=== PATIENT | female | born 1965 | race Caucasian/White ===

== ENCOUNTER 2020-09-18 16:32 | Inpatient (IN) | payer BC ==
[2020-09-18] MEDS ORDERED: SODIUM CHLORIDE 0.9% 1,000 ML IV STA (16:39)
--- NOTE | 2020-09-18 16:45 | ED ---
Abdominal Pain HPI - General Chief Complaint: Abdominal Pain Stated Complaint: ABD pain Time Seen by Provider: 09/18/20 16:39 Source: patient Mode of arrival: wheelchair Limitations: no limitations - History of Present Illness Initial Comments: Swetha is relatively healthy 55-year-old female who presents to the emergency department today for evaluation of lower abdominal pain that began earlier today. Patient describes pain as severe stabbing in the suprapubic area. She also has pain with urination. She's been expressing diarrhea since yesterday she believes this started after eating fruit salad at work event at lunch yesterday. Patient denies any known fevers or chills she's had no nausea or vomiting today but did vomit after eating a fruit salad yesterday. - Related Data Home Medications Medication Instructions Recorded Confirmed Ibuprofen [Motrin Ib] 400 mg PO Q8H PRN 09/18/20 09/18/20 Allergies Allergy/AdvReac Type Severity Reaction Status Date / Time Penicillins Allergy Unknown Verified 09/18/20 20:06 Review of Systems ROS Statement: Those systems with pertinent positive or pertinent negative responses have been documented in the HPI. ROS Other: All systems not noted in ROS Statement are negative. Past Medical History Past Medical History: No Reported History History of Any Multi-Drug Resistant Organisms: None Reported Past Surgical History: No Surgical Hx Reported Past Psychological History: No Psychological Hx Reported Smoking Status: Former smoker Past Alcohol Use History: Occasional Past Drug Use History: None Reported General Exam - General Exam Comments Initial Comments: Physical Exam GENERAL: Patient is well-developed and well-nourished. Appears uncomfortable HENT: Normocephalic, Atraumatic. EYES: PERRL, EOMI PULMONARY: Unlabored respirations. CARDIOVASCULAR: RRR Warm and well perfused extremities ABDOMEN: Tender to palpation of suprapubic and RLQ SKIN: No rashes or bruising : Deferred NEUROLOGIC: Alert and oriented Normal speech Normal gait MUSCULOSKELETAL: Moving all extremities with no apparent injury PSYCHIATRIC: No SI/HI Limitations: no limitations Course Vital Signs 09/18/20 09/18/20 16:35 19:19 Temperature 98.8 F Pulse Rate 110 H 90 Respiratory 18 16 Rate Blood Pressure 129/88 143/91 O2 Sat by Pulse 97 96 Oximetry Medical Decision Making - Medical Decision Making Patient was seen and evaluated history was obtained from patient History and physical exam are concerning for an acute appendicitis Labs were ordered results with leukocytosis, urinalysis is clean Analgesic medication and computed tomography scan were obtained CT scan with evidence of ileitis and inflamed bowel loops in the pelvis, antibiotics were ordered Patient's history and physical exam labs and CAT scan findings were discussed with the surgeon on-call Dr. Huerta who will review the CT imaging recommends admission to medicine with him on consult She care was discussed with physician from [facility] Dr. Barakat who accepts admission Patient was reevaluated and states that she had improvement of her pain after morphine but it is wearing off, she was hoping to go home but is agreeable to admission - Lab Data Result diagrams: 09/18/20 17:28 09/18/20 17:28 Lab Results 09/18/20 09/18/20 09/18/20 Range/Units 17:28 17:28 17:28 WBC 20.5 H (3.8-10.6) k/uL RBC 4.62 (3.80-5.40) m/uL Hgb 15.1 (11.4-16.0) gm/dL Hct 44.5 (34.0-46.0) % MCV 96.3 (80.0-100.0) fL MCH 32.7 (25.0-35.0) pg MCHC 33.9 (31.0-37.0) g/dL RDW 12.9 (11.5-15.5) % Plt Count 286 (150-450) k/uL MPV 7.8 Neutrophils % 86 % Lymphocytes % 8 % Monocytes % 4 % Eosinophils % 1 % Basophils % 0 % Neutrophils # 17.7 H (1.3-7.7) k/uL Lymphocytes # 1.7 (1.0-4.8) k/uL Monocytes # 0.8 (0-1.0) k/uL Eosinophils # 0.1 (0-0.7) k/uL Basophils # 0.0 (0-0.2) k/uL Sodium 134 L (137-145) mmol/L Potassium 3.5 (3.5-5.1) mmol/L Chloride 100 (98-107) mmol/L Carbon Dioxide 23 (22-30) mmol/L Anion Gap 11 mmol/L BUN 12 (7-17) mg/dL Creatinine 0.74 (0.52-1.04) mg/dL Est GFR (CKD-EPI)AfAm >90 (>60 ml/min/1.73 sqM) Est GFR (CKD-EPI)NonAf >90 (>60 ml/min/1.73 sqM) Glucose 147 H (74-99) mg/dL Lactic Ac Sepsis Rflx Plasma Lactic Acid Osei (0.7-2.0) mmol/L Calcium 9.3 (8.4-10.2) mg/dL Magnesium 1.9 (1.6-2.3) mg/dL Total Bilirubin 2.3 H (0.2-1.3) mg/dL AST 20 (14-36) U/L ALT 24 (4-34) U/L Alkaline Phosphatase 98 (38-126) U/L Total Protein 7.3 (6.3-8.2) g/dL Albumin 4.2 (3.5-5.0) g/dL Lipase 29 (23-300) U/L Urine Color [place] Urine Appearance Cloudy H (Clear) Urine pH 6.0 (5.0-8.0) Ur Specific Hustler 1.032 (1.001-1.035) Urine Protein 3+ H (Negative) Urine Glucose (UA) Trace H (Negative) Urine Ketones 1+ H (Negative) Urine Blood Small H (Negative) Urine Nitrite Negative (Negative) Urine Bilirubin 1+ H (Negative) Urine Urobilinogen 12.0 (<2.0) mg/dL Ur Leukocyte Esterase Negative (Negative) Urine RBC 1 (0-5) /hpf Urine WBC 5 (0-5) /hpf Ur Squamous Epith Cells 1 (0-4) /hpf Urine Mucus Many H (None) /hpf 09/18/20 09/18/20 Range/Units 17:28 17:52 WBC (3.8-10.6) k/uL RBC (3.80-5.40) m/uL Hgb (11.4-16.0) gm/dL Hct (34.0-46.0) % MCV (80.0-100.0) fL MCH (25.0-35.0) pg MCHC (31.0-37.0) g/dL RDW (11.5-15.5) % Plt Count (150-450) k/uL MPV Neutrophils % % Lymphocytes % % Monocytes % % Eosinophils % % Basophils % % Neutrophils # (1.3-7.7) k/uL Lymphocytes # (1.0-4.8) k/uL Monocytes # (0-1.0) k/uL Eosinophils # (0-0.7) k/uL Basophils # (0-0.2) k/uL Sodium (137-145) mmol/L Potassium (3.5-5.1) mmol/L Chloride (98-107) mmol/L Carbon Dioxide (22-30) mmol/L Anion Gap mmol/L BUN (7-17) mg/dL Creatinine (0.52-1.04) mg/dL Est GFR (CKD-EPI)AfAm (>60 ml/min/1.73 sqM) Est GFR (CKD-EPI)NonAf (>60 ml/min/1.73 sqM) Glucose (74-99) mg/dL Lactic Ac Sepsis Rflx Y Plasma Lactic Acid Osei 2.2 H* (0.7-2.0) mmol/L Calcium (8.4-10.2) mg/dL Magnesium (1.6-2.3) mg/dL Total Bilirubin (0.2-1.3) mg/dL AST (14-36) U/L ALT (4-34) U/L Alkaline Phosphatase (38-126) U/L Total Protein (6.3-8.2) g/dL Albumin (3.5-5.0) g/dL Lipase (23-300) U/L Urine Color Urine Appearance (Clear) Urine pH (5.0-8.0) Ur Specific Hustler (1.001-1.035) Urine Protein (Negative) Urine Glucose (UA) (Negative) Urine Ketones (Negative) Urine Blood (Negative) Urine Nitrite (Negative) Urine Bilirubin (Negative) Urine Urobilinogen (<2.0) mg/dL Ur Leukocyte Esterase (Negative) Urine RBC (0-5) /hpf Urine WBC (0-5) /hpf Ur Squamous Epith Cells (0-4) /hpf Urine Mucus (None) /hpf Disposition Clinical Impression: Ileitis, Leukocytosis Disposition: ADMITTED IP TO THIS HOSP Condition: Stable
[2020-09-18 17:46] LABS: Appearance,Urine Cloudy (Clear); Bilirubin,Urine 1+ (Negative); Blood,Urine Small (Negative); Color,Urine Orange; Glucose,Urine (UA) Trace (Negative); Ketones,Urine 1+ (Negative); Leukocyte Esterase,Urine Negative (Negative); Mucus,Urine Many /hpf; Nitrite,Urine Negative (Negative); Protein,Urine 3+ (Negative); RBC,Urine 1 /hpf (0-5); Specific Gravity,Urine 1.032 (1.001-1.035); Squamous Epithelial Cell,Urine 1 /hpf (0-4); WBC,Urine 5 /hpf (0-5)
[2020-09-18 17:48] LABS: Basophils % (A) 0 %; Eosinophils # (A) 0.1 k/uL (0-0.7); Eosinophils % (A) 1 %; HCT 44.5 % (34.0-46.0); HGB 15.1 gm/dL (11.4-16.0); Lymphocytes # (A) 1.7 k/uL (1.0-4.8); Lymphocytes % (A) 8 %; MCH 32.7 pg (25.0-35.0); MCHC 33.9 g/dL (31.0-37.0); MCV 96.3 fL (80.0-100.0); Mean Platelet Volume 7.8; Monocytes # (A) 0.8 k/uL (0-1.0); Monocytes % (A) 4 %; Neutrophils # (A) 17.7 k/uL (1.3-7.7); Neutrophils % (A) 86 %; Platelet Count 286 k/uL (150-450); RBC 4.62 m/uL (3.80-5.40); RDW 12.9 % (11.5-15.5); WBC 20.5 k/uL (3.8-10.6)
[2020-09-18 17:49] LABS: ALT 24 U/L (4-34); AST 20 U/L (14-36); African American GFR (CKD) >90 (>60 ml/min/1.73 sqM); Albumin 4.2 g/dL (3.5-5.0); Alkaline Phosphatase 98 U/L (38-126); Anion Gap 11 mmol/L; Blood Urea Nitrogen 12 mg/dL (7-17); Calcium 9.3 mg/dL (8.4-10.2); Carbon Dioxide 23 mmol/L (22-30); Chloride 100 mmol/L (98-107); Glucose 147 mg/dL (74-99); Lipase 29 U/L (23-300); Magnesium 1.9 mg/dL (1.6-2.3); Non-African American GFR(CKD) >90 (>60 ml/min/1.73 sqM); Potassium 3.5 mmol/L (3.5-5.1); Sodium 134 mmol/L (137-145); Total Bilirubin 2.3 mg/dL (0.2-1.3); Total Protein 7.3 g/dL (6.3-8.2)
[2020-09-18] MEDS ORDERED: MORPHINE SULFATE 4 MG/ML SYRINGE IVP STA (17:53)
--- NOTE | 2020-09-18 18:59 | CT ---
EXAMINATION TYPE: CT abdomen pelvis w con DATE OF EXAM: 09/18/2020 COMPARISON: None HISTORY: periumbilical pain, diarrhea CT DLP: 903.7 mGycm Automated exposure control for dose reduction was used. CONTRAST: Performed with IV Contrast, patient injected with 100 mL of Isovue 300. Images obtained from the diaphragm to the floor the pelvis with IV contrast. There is some mild subsegmental atelectasis at the lung bases. Heart size is normal. There is no yesika cardial effusion. Liver is intact. Spleen is intact. There is no pancreatic mass. Gallbladder appears normal. The stoma ch is intact. There is no adrenal mass. Kidneys show satisfactory contrast opacification. There is no hydronephrosi s. Ureters are not dilated. There is no retroperitoneal adenopathy. Delayed images show normal renal excretion. There is some air in the appendix. Appendix appears normal. Bladder distends smoothly. Zee tawana is anteverted. There is small amount of free fluid in the pelvis. There are multiple sigmoid dive rticula. There is wall thickening of distal small bowel loops in the pelvis. There is long segment of involvem ent and wall thickness measures up to 9 mm. There is some distended proximal small bowel with air-flu id levels. Small bowel measures up to 2.5 cm in diameter. The terminal ileum at the ileocecal valve s hows normal appearance. The lumbar vertebra have normal alignment. There is no compression fracture. Bony pelvis is intact. T he hip joints are intact. IMPRESSION: Long segment of abnormal small bowel in the pelvis with wall thickening and fat stranding and consist ent with inflammatory bowel disease of the ileum. Sigmoid diverticulosis without definite diverticulitis.
[2020-09-18] MEDS ORDERED: MORPHINE SULFATE 4 MG/ML SYRINGE IV PRN (19:56)
[2020-09-18] MEDS ORDERED: ONDANSETRON 4 MG/2 ML VIAL IVP PRN (19:56)
[2020-09-18] MEDS ORDERED: NALOXONE 0.4 MG/ML 1 ML VIAL IV PRN (19:56)
[2020-09-18] MEDS ORDERED: metroNIDAZOLE-NS PMX 500 MG in SALINE 1 100ML.BAG IVPB STA (19:59)
[2020-09-18] MEDS ORDERED: cefTRIAXone IN SWFI 1,000 MG/10 ML SYRINGE IVP STA (19:59)
[2020-09-18] MEDS: SODIUM CHLORIDE 0.9% 1,000 ML IV SCH (20:51)
--- NOTE | 2020-09-18 22:41 | P.HPIM ---
History of Present Illness H&P Date: 09/18/20 Chief Complaint: Abdominal pain 55-year-old femalesignificant past medical history Patient comes in with 2 day history of severe suprapubic abdominal pain radiating to both sides of the abdomen. Pain is rated 10 out of 10 in severity worse with movement coughing and deep breaths. Associated with diarrhea nonbloody. Denies any vomiting denies any fevers denies any chills. She feels very sick and has lost her appetite. She denies any urinary changes. Denies any history of kidney stones. Otherwise denies any chest pain coughing. She reports eating lunch at work the day the symptoms started she vomited later that day but since then no more vomiting. Otherwise she denies any sick contact, denies any recent travel, denies any campaigning or unsanitary food or drink other than mentioned above, denies any similar episodes in the past In the ED computed tomography scan of the abdomen showed diffuse ileitis. Blood work showed leukocytosis and lactic acidosis with elevated bilirubin at 2.3 Review of Systems Pertinent positives as noted in HPI. All other systems were reviewed and are negative Past Medical History Past Medical History: No Reported History History of Any Multi-Drug Resistant Organisms: None Reported Past Surgical History: No Surgical Hx Reported Past Psychological History: No Psychological Hx Reported Smoking Status: Former smoker Past Alcohol Use History: Occasional Past Drug Use History: None Reported Medications and Allergies Home Medications Medication Instructions Recorded Confirmed Type Ibuprofen [Motrin Ib] 400 mg PO Q8H PRN 09/18/20 09/18/20 History Allergies Allergy/AdvReac Type Severity Reaction Status Date / Time Penicillins Allergy Unknown Verified 09/18/20 20:06 Physical Exam Vitals: Vital Signs Temp Pulse Resp BP Pulse Ox 09/18/20 19:19 90 16 143/91 96 09/18/20 16:35 98.8 F 110 H 18 129/88 97 Intake and Output 09/18/20 09/18/20 09/18/20 06:59 14:59 22:59 Other: Weight 77.111 kg Constitutional: No acute distress, conversant, pleasant Eyes: Anicteric sclerae, moist conjunctiva, Pupils equal round reactive to light ENMT: NC/AT Oropharynx clear, no erythema, or exudates Neck: Supple, FROM, no masses, or JVD No carotid bruits No thyromegaly Lungs: Clear to auscultation Clear to percussion Normal respiratory effort, no accessory muscle use Cardiovascular: Heart regular in rate and rhythm, No murmurs, gallops, or rubs No peripheral edema Abdominal: Soft Diffusely tender to deep palpation with rebound tenderness and guarding no rigidity , no tenderness to tapping over the costovertebral angle Patient is not moving her abdomen with respiration as it increases pain Normoactive bowel sounds No hepatomegaly, No splenomegaly No palpable mass No abdominal wall hernia noted Skin: Normal temperature, tone, texture, turgor No induration No subcutaneous nodules No rash, lesions No ulcers Extremities: No digital cyanosis No clubbing Pedal pulses intact and symmetrical Radial pulses intact and symmetrical No calf tenderness Psychiatric: Alert and oriented to person, place and time Appropriate affect fair judgement Neuro Muscles Strength 5/5 in all 4 extremities Sensation to light touch grossly present throughout Cranial nerves II-XII grossly intact No focal sensory deficits Lymphatics: no palpable cervical or supraclavicular , or inguinal lymph nodes Results CBC & Chem 7: 09/18/20 17:28 09/18/20 17:28 Labs: Abnormal Lab Results - Last 24 Hours (Table) 09/18/20 09/18/20 09/18/20 Range/Units 17:28 17:28 17:28 WBC 20.5 H (3.8-10.6) k/uL Neutrophils # 17.7 H (1.3-7.7) k/uL Sodium 134 L (137-145) mmol/L Glucose 147 H (74-99) mg/dL Plasma Lactic Acid Osei (0.7-2.0) mmol/L Total Bilirubin 2.3 H (0.2-1.3) mg/dL Urine Appearance Cloudy H (Clear) Urine Protein 3+ H (Negative) Urine Glucose (UA) Trace H (Negative) Urine Ketones 1+ H (Negative) Urine Blood Small H (Negative) Urine Bilirubin 1+ H (Negative) Urine Mucus Many H (None) /hpf 09/18/20 Range/Units 17:28 WBC (3.8-10.6) k/uL Neutrophils # (1.3-7.7) k/uL Sodium (137-145) mmol/L Glucose (74-99) mg/dL Plasma Lactic Acid Osei 2.2 H* (0.7-2.0) mmol/L Total Bilirubin (0.2-1.3) mg/dL Urine Appearance (Clear) Urine Protein (Negative) Urine Glucose (UA) (Negative) Urine Ketones (Negative) Urine Blood (Negative) Urine Bilirubin (Negative) Urine Mucus (None) /hpf Assessment and Plan Assessment: Diffuse ileitis Lactic acidosis elevated bilirubin Check C. diff She started on empiric antibiotics with levofloxacin and Flagyl patient has ALLERGY to penicillin described as severe with respiratory symptoms IV fluid hydration General surgery to review CAT scans to rule out acute appendicitis Pain control with morphine Nothing by mouth Acetaminophen for fever Check antineutrophil cytoplasmic antibodies CODE STATUS: Full code DVT prophylaxis: Mechanical Discussed with: Patient, ER, RN Anticipated length of stay more than [address]: Home A total of 75 minutes was spent on the care of this complex patient more than 50% of the time was spent in counseling and care coordination.
[2020-09-18] MEDS ORDERED: LEVOFLOXACIN 500MG-D5W PMX 500 MG in DEXTROSE/WATER 1 100ML.BAG IVPB SCH (23:00)
[2020-09-18] MEDS: ACETAMINOPHEN IV (For NPO) 1,000 MG in EMPTY BAG 1 BAG IVPB PRN (23:03)
[2020-09-18] MEDS: LEVOFLOXACIN 750MG-D5W PMX 750 MG in DEXTROSE/WATER 1 150ML.BAG IVPB SCH (23:34)
[2020-09-19] MEDS: metroNIDAZOLE-NS PMX 500 MG in SALINE 1 100ML.BAG IVPB SCH ×3 (01:13→16:58)
[2020-09-19] MEDS: SODIUM CHLORIDE 0.9% 1,000 ML IV SCH ×2 (04:07→12:04)
[2020-09-19 06:20] LABS: Basophils % (A) 0 %; Eosinophils # (A) 0.1 k/uL (0-0.7); Eosinophils % (A) 1 %; HCT 40.4 % (34.0-46.0); HGB 13.6 gm/dL (11.4-16.0); Lymphocytes # (A) 1.1 k/uL (1.0-4.8); Lymphocytes % (A) 7 %; MCH 32.5 pg (25.0-35.0); MCHC 33.6 g/dL (31.0-37.0); MCV 96.7 fL (80.0-100.0); Mean Platelet Volume 7.4; Monocytes # (A) 0.6 k/uL (0-1.0); Monocytes % (A) 4 %; Neutrophils # (A) 14.2 k/uL (1.3-7.7); Neutrophils % (A) 88 %; Platelet Count 238 k/uL (150-450); RBC 4.17 m/uL (3.80-5.40); RDW 12.2 % (11.5-15.5); WBC 16.2 k/uL (3.8-10.6)
[2020-09-19 06:39] LABS: ALT 18 U/L (4-34); AST 18 U/L (14-36); African American GFR (CKD) >90 (>60 ml/min/1.73 sqM); Albumin 3.3 g/dL (3.5-5.0); Alkaline Phosphatase 74 U/L (38-126); Anion Gap 9 mmol/L; Blood Urea Nitrogen 13 mg/dL (7-17); Calcium 8.3 mg/dL (8.4-10.2); Carbon Dioxide 23 mmol/L (22-30); Chloride 104 mmol/L (98-107); Glucose 96 mg/dL (74-99); Non-African American GFR(CKD) >90 (>60 ml/min/1.73 sqM); Potassium 3.4 mmol/L (3.5-5.1); Sodium 136 mmol/L (137-145); Total Bilirubin 1.4 mg/dL (0.2-1.3); Total Protein 6.1 g/dL (6.3-8.2)
[2020-09-19] MEDS: ACETAMINOPHEN IV (For NPO) 1,000 MG in EMPTY BAG 1 BAG IVPB PRN ×3 (07:58→21:07)
--- NOTE | 2020-09-19 09:46 | P.PN ---
Subjective Progress Note Date: 09/19/20 Feels okay, still has abdominal pain and tenderness. She had a bowel movement earlier today. She remains afebrile. Objective - Vital Signs Vital signs: Vital Signs Temp 97.6 F 09/19/20 08:16 Pulse 82 09/19/20 08:16 Resp 25 H 09/19/20 08:16 BP 145/82 09/19/20 08:16 Pulse Ox 97 09/19/20 08:16 Intake & Output 09/18/20 09/19/20 09/19/20 18:59 06:59 18:59 Intake Total 1000 Balance 1000 Weight 77.111 kg 77.111 kg Intake: Intake, IV Titration 1000 Amount Levofloxacin 750Mg-D5w 150 Pmx 750 mg In Dextrose/ Water 1 150ml.bag @ 100 mls/hr IVPB Q24H [facility]BY Rx#: [id number] Sodium Chloride 0.9% 1, 750 000 ml @ 125 mls/hr IV . Q8H [facility]BY Rx#:[id number] PMX 500 100 mg In Saline 1 100ml.bag @ 100 mls/hr IVPB Q8HR [facility]BY Rx#:[id number] Other: Voiding Method Toilet # Voids 3 - Exam Constitutional: No acute distress, conversant, pleasant Eyes: Anicteric sclerae ENMT: NC/AT Neck:Supple Lungs: Clear to auscultation, Clear to percussion, Normal respiratory effort, no accessory muscle use Cardiovascular: Heart regular in rate and rhythm, No murmurs, gallops, or rubs Abdominal: Soft + upper abd tender, non distended, no guarding, no rebound Skin: Normal temperature, tone, texture, turgor, No induration No subcutaneous nodules, No rash, lesions, No ulcers Extremities:No digital cyanosis No clubbing, Pedal pulses intact and symm etrical Radial pulses intact and symmetrical Normal gait and station, No calf tenderness Psychiatric: Alert and oriented to person, place and time, Appropriate affect Intact judgement Neuro: Muscles Strength 5/5 in all 4 extremities, Sensation to light touch grossly present throughout, Cranial nerves II-XII grossly intact. No focal sensory deficits - Labs CBC & Chem 7: 09/19/20 05:10 09/19/20 05:10 Labs: Abnormal Lab Results - Last 24 Hours (Table) 09/18/20 09/18/20 09/18/20 Range/Units 17:28 17:28 17:28 WBC 20.5 H (3.8-10.6) k/uL Neutrophils # 17.7 H (1.3-7.7) k/uL Sodium 134 L (137-145) mmol/L Potassium (3.5-5.1) mmol/L Glucose 147 H (74-99) mg/dL Plasma Lactic Acid Osei (0.7-2.0) mmol/L Calcium (8.4-10.2) mg/dL Total Bilirubin 2.3 H (0.2-1.3) mg/dL Total Protein (6.3-8.2) g/dL Albumin (3.5-5.0) g/dL Urine Appearance Cloudy H (Clear) Urine Protein 3+ H (Negative) Urine Glucose (UA) Trace H (Negative) Urine Ketones 1+ H (Negative) Urine Blood Small H (Negative) Urine Bilirubin 1+ H (Negative) Urine Mucus Many H (None) /hpf 09/18/20 09/19/20 09/19/20 Range/Units 17:28 05:10 05:10 WBC 16.2 H (3.8-10.6) k/uL Neutrophils # 14.2 H (1.3-7.7) k/uL Sodium 136 L (137-145) mmol/L Potassium 3.4 L (3.5-5.1) mmol/L Glucose (74-99) mg/dL Plasma Lactic Acid Osei 2.2 H* (0.7-2.0) mmol/L Calcium 8.3 L (8.4-10.2) mg/dL Total Bilirubin 1.4 H (0.2-1.3) mg/dL Total Protein 6.1 L (6.3-8.2) g/dL Albumin 3.3 L (3.5-5.0) g/dL Urine Appearance (Clear) Urine Protein (Negative) Urine Glucose (UA) (Negative) Urine Ketones (Negative) Urine Blood (Negative) Urine Bilirubin (Negative) Urine Mucus (None) /hpf Assessment and Plan Plan: 1. Diffuse ileitis, possible inflammatory: Pending C. diff Continue levofloxacin and Flagyl, IV fluids General surgery consultation. Pain control with morphine Check antineutrophil cytoplasmic antibodies 2. Sirs with sepsis secondary to ileitis: Continue IV fluids and IV antibiotics, WBC down to 16,000 20,000 on admission. CODE STATUS: Full code DVT prophylaxis: Mechanical Discussed with: Patient, RN Anticipated length of stay : Home in 2-[address]: Home
[2020-09-19] MEDS ORDERED: POTASSIUM CHLORIDE 20 MEQ in WATER FOR INJECTION 1 100ML.BAG IVPB STA (11:23)
--- NOTE | 2020-09-19 11:23 | P.GSCN ---
<Rhianna Degroot - Last Filed: 09/19/20 11:12> History of Present Illness Consult date: 09/19/20 History of present illness: CHIEF COMPLAINT: Abdominal pain HISTORY OF PRESENT ILLNESS: This is a 55-year-old female with a significant past medical history. She presented to the emergency room with complaints of lower abdominal pain. She reports that symptoms started on Saturday evening. She init ially thought she had food poisoning from eating a fruit salad at a work event for lunch. She states that she vomited twice at work. And also started having diarrhea. The lower abdominal pain is sharp and crampy and radiates up into the abdomen. She had multiple episodes of diarrhea. She reports no blood in her stools. She has never had symptoms like this before. She became concerned because her urine was becoming very dark. She has never had a colonoscopy. On admission she rates her pain about a 5-6 out of 10 in today pain is decreased to about a 3 or 4 out of 10. She had a computed tomography scan of the abdomen and pelvis with IV contrast showing long segment of abnormal small bowel in the pelvis with wall thickening and fat stranding consistent with inflammatory bowel disease of the ileum. Sigmoid diverticulosis without definite diverticulitis. Patient denies any family history of inflammatory bowel disease, Crohn's or ulcerative colitis. PAST MEDICAL HISTORY: See list. PAST SURGICAL HISTORY: See list. MEDICATIONS: See list. ALLERGIES: See list. SOCIAL HISTORY: No illicit drug use. REVIEW OF SYSTEMS: CONSTITUTIONAL: Denies fever or chills. HEENT: Denies blurred vision, vision changes, or eye pain. Denies hemoptysis CARDIOVASCULAR: Denies chest pain or pressure. RESPIRATORY: No shortness of breath. GASTROINTESTINAL: See HPI for pertinent findings HEMATOLOGIC: Denies bleeding disorders. GENITOURINARY: Denies any blood in urine or increased urinary frequency. SKIN: Denies pruitis. Denies rash. PHYSICAL EXAM: VITAL SIGNS: Reviewed GENERAL: Well-developed in no acute distress. HEENT: No sclera icterus. Extraocular movements grossly intact. Moist buccal mucosa. Head is atraumatic, normocephalic. No nasal drainage. ABDOMEN: Soft. Mildly distended. Very tender with Lower abdominal tenderness with palpation across the abdomen more so on the left. No peritoneal signs NEUROLOGIC: Alert and oriented. Cranial nerves II through XII grossly intact. LABORATORY DATA: WBC has decreased from 20.5-16.2 hemoglobin 13.6 platelets 238 sodium 136 potassium 3.4 creatinine 0.61 lactic acid has come down from 2.2-1.0 LFTs normal lipase normal UA no evidence of infection C. diff negative COVID-19 negative IMAGING: computed tomography scan of the abdomen and pelvis with IV contrast showing long segment of abnormal small bowel in the pelvis with wall thickening and fat stranding consistent with inflammatory bowel disease of the ileum. Sigmoid diverticulosis without definite diverticulitis. ASSESSMENT: 1. Lower abdominal pain with vomiting and diarrhea. Computed tomography scan of the abdomen and pelvis showing evidence of a long segment of abnormal small bowel in the pelvis with wall thickening and fat stranding consistent with inflammatory bowel disease of the ileum PLAN: -Keep patient nothing by mouth -Continue antibiotics -Continue IV fluids -Continue pain medication as needed -Continue antiemetics -Add GI prophylaxis Protonix and DVT prophylaxis subcu heparin -Further recommendations forthcoming per surgeon Physician Crab Fisherman note has been reviewed by physician. Signing provider agrees with the documented findings, assessment, and plan of care. Past Medical History Past Medical History: No Reported History History of Any Multi-Drug Resistant Organisms: None Reported Past Surgical History: No Surgical Hx Reported Past Anesthesia/Blood Transfusion Reactions: No Reported Reaction Past Psychological History: No Psychological Hx Reported Smoking Status: Former smoker Past Alcohol Use History: Occasional Past Drug Use History: None Reported - Past Family History Mother Family Medical History: Cancer, COPD Medications and Allergies Home Medications Medication Instructions Recorded Confirmed Type Ibuprofen [Motrin Ib] 400 mg PO Q8H PRN 09/18/20 09/18/20 History Allergies Allergy/AdvReac Type Severity Reaction Status Date / Time Penicillins Allergy Unknown Verified 09/18/20 20:06 Surgical - Exam Vital Signs Temp Pulse Resp BP Pulse Ox 98.8 F 110 H 18 129/88 97 09/18/20 16:35 09/18/20 16:35 09/18/20 16:35 09/18/20 16:35 09/18/20 16:35 Results - Labs 09/19/20 05:10 09/19/20 05:10 Abnormal Lab Results - Last 24 Hours (Table) 09/18/20 09/18/20 09/18/20 Range/Units 17:28 17:28 17:28 WBC 20.5 H (3.8-10.6) k/uL Neutrophils # 17.7 H (1.3-7.7) k/uL Sodium 134 L (137-145) mmol/L Potassium (3.5-5.1) mmol/L Glucose 147 H (74-99) mg/dL Plasma Lactic Acid Osei (0.7-2.0) mmol/L Calcium (8.4-10.2) mg/dL Total Bilirubin 2.3 H (0.2-1.3) mg/dL Total Protein (6.3-8.2) g/dL Albumin (3.5-5.0) g/dL Urine Appearance Cloudy H (Clear) Urine Protein 3+ H (Negative) Urine Glucose (UA) Trace H (Negative) Urine Ketones 1+ H (Negative) Urine Blood Small H (Negative) Urine Bilirubin 1+ H (Negative) Urine Mucus Many H (None) /hpf 09/18/20 09/19/20 09/19/20 Range/Units 17:28 05:10 05:10 WBC 16.2 H (3.8-10.6) k/uL Neutrophils # 14.2 H (1.3-7.7) k/uL Sodium 136 L (137-145) mmol/L Potassium 3.4 L (3.5-5.1) mmol/L Glucose (74-99) mg/dL Plasma Lactic Acid Osei 2.2 H* (0.7-2.0) mmol/L Calcium 8.3 L (8.4-10.2) mg/dL Total Bilirubin 1.4 H (0.2-1.3) mg/dL Total Protein 6.1 L (6.3-8.2) g/dL Albumin 3.3 L (3.5-5.0) g/dL Urine Appearance (Clear) Urine Protein (Negative) Urine Glucose (UA) (Negative) Urine Ketones (Negative) Urine Blood (Negative) Urine Bilirubin (Negative) Urine Mucus (None) /hpf Diabetes panel 09/18/20 09/19/20 Range/Units 17:28 05:10 Sodium 134 L 136 L (137-145) mmol/L Potassium 3.5 3.4 L (3.5-5.1) mmol/L Chloride 100 104 (98-107) mmol/L Carbon Dioxide 23 23 (22-30) mmol/L BUN 12 13 (7-17) mg/dL Creatinine 0.74 0.61 (0.52-1.04) mg/dL Glucose 147 H 96 (74-99) mg/dL Calcium 9.3 8.3 L (8.4-10.2) mg/dL AST 20 18 (14-36) U/L ALT 24 18 (4-34) U/L Alkaline Phosphatase 98 74 (38-126) U/L Total Protein 7.3 6.1 L (6.3-8.2) g/dL Albumin 4.2 3.3 L (3.5-5.0) g/dL Calcium panel 09/18/20 09/19/20 Range/Units 17:28 05:10 Calcium 9.3 8.3 L (8.4-10.2) mg/dL Albumin 4.2 3.3 L (3.5-5.0) g/dL Pituitary panel 09/18/20 09/19/20 Range/Units 17:28 05:10 Sodium 134 L 136 L (137-145) mmol/L Potassium 3.5 3.4 L (3.5-5.1) mmol/L Chloride 100 104 (98-107) mmol/L Carbon Dioxide 23 23 (22-30) mmol/L BUN 12 13 (7-17) mg/dL Creatinine 0.74 0.61 (0.52-1.04) mg/dL Glucose 147 H 96 (74-99) mg/dL Calcium 9.3 8.3 L (8.4-10.2) mg/dL Adrenal panel 09/18/20 09/19/20 Range/Units 17:28 05:10 Sodium 134 L 136 L (137-145) mmol/L Potassium 3.5 3.4 L (3.5-5.1) mmol/L Chloride 100 104 (98-107) mmol/L Carbon Dioxide 23 23 (22-30) mmol/L BUN 12 13 (7-17) mg/dL Creatinine 0.74 0.61 (0.52-1.04) mg/dL Glucose 147 H 96 (74-99) mg/dL Calcium 9.3 8.3 L (8.4-10.2) mg/dL Total Bilirubin 2.3 H 1.4 H (0.2-1.3) mg/dL AST 20 18 (14-36) U/L ALT 24 18 (4-34) U/L Alkaline Phosphatase 98 74 (38-126) U/L Total Protein 7.3 6.1 L (6.3-8.2) g/dL Albumin 4.2 3.3 L (3.5-5.0) g/dL <Coco Huertaony - Last Filed: 09/19/20 14:08> History of Present Illness History of present illness: As above. Patient with evidence of enteritis on CAT scan. Symptoms of nausea and vomiting followed by abdominal pain followed by diarrhea starting last Saturday. No sick contacts. No recent travel. No obvious sources by history for infectious enteritis. Await stool cultures however. Continue empiric antibiotics. Keep nothing by mouth for now. We'll follow closely with you. Surgical - Exam Vital Signs Temp Pulse Resp BP Pulse Ox 98.8 F 110 H 18 129/88 97 09/18/20 16:35 09/18/20 16:35 09/18/20 16:35 09/18/20 16:35 09/18/20 16:35 Results - Labs 09/19/20 05:10 09/19/20 05:10 Abnormal Lab Results - Last 24 Hours (Table) 09/18/20 09/18/20 09/18/20 Range/Units 17:28 17:28 17:28 WBC 20.5 H (3.8-10.6) k/uL Neutrophils # 17.7 H (1.3-7.7) k/uL Sodium 134 L (137-145) mmol/L Potassium (3.5-5.1) mmol/L Glucose 147 H (74-99) mg/dL Plasma Lactic Acid Osei (0.7-2.0) mmol/L Calcium (8.4-10.2) mg/dL Total Bilirubin 2.3 H (0.2-1.3) mg/dL Total Protein (6.3-8.2) g/dL Albumin (3.5-5.0) g/dL Urine Appearance Cloudy H (Clear) Urine Protein 3+ H (Negative) Urine Glucose (UA) Trace H (Negative) Urine Ketones 1+ H (Negative) Urine Blood Small H (Negative) Urine Bilirubin 1+ H (Negative) Urine Mucus Many H (None) /hpf 09/18/20 09/19/20 09/19/20 Range/Units 17:28 05:10 05:10 WBC 16.2 H (3.8-10.6) k/uL Neutrophils # 14.2 H (1.3-7.7) k/uL Sodium 136 L (137-145) mmol/L Potassium 3.4 L (3.5-5.1) mmol/L Glucose (74-99) mg/dL Plasma Lactic Acid Osei 2.2 H* (0.7-2.0) mmol/L Calcium 8.3 L (8.4-10.2) mg/dL Total Bilirubin 1.4 H (0.2-1.3) mg/dL Total Protein 6.1 L (6.3-8.2) g/dL Albumin 3.3 L (3.5-5.0) g/dL Urine Appearance (Clear) Urine Protein (Negative) Urine Glucose (UA) (Negative) Urine Ketones (Negative) Urine Blood (Negative) Urine Bilirubin (Negative) Urine Mucus (None) /hpf Diabetes panel 09/18/20 09/19/20 Range/Units 17:28 05:10 Sodium 134 L 136 L (137-145) mmol/L Potassium 3.5 3.4 L (3.5-5.1) mmol/L Chloride 100 104 (98-107) mmol/L Carbon Dioxide 23 23 (22-30) mmol/L BUN 12 13 (7-17) mg/dL Creatinine 0.74 0.61 (0.52-1.04) mg/dL Glucose 147 H 96 (74-99) mg/dL Calcium 9.3 8.3 L (8.4-10.2) mg/dL AST 20 18 (14-36) U/L ALT 24 18 (4-34) U/L Alkaline Phosphatase 98 74 (38-126) U/L Total Protein 7.3 6.1 L (6.3-8.2) g/dL Albumin 4.2 3.3 L (3.5-5.0) g/dL Calcium panel 09/18/20 09/19/20 Range/Units 17:28 05:10 Calcium 9.3 8.3 L (8.4-10.2) mg/dL Albumin 4.2 3.3 L (3.5-5.0) g/dL Pituitary panel 09/18/20 09/19/20 Range/Units 17:28 05:10 Sodium 134 L 136 L (137-145) mmol/L Potassium 3.5 3.4 L (3.5-5.1) mmol/L Chloride 100 104 (98-107) mmol/L Carbon Dioxide 23 23 (22-30) mmol/L BUN 12 13 (7-17) mg/dL Creatinine 0.74 0.61 (0.52-1.04) mg/dL Glucose 147 H 96 (74-99) mg/dL Calcium 9.3 8.3 L (8.4-10.2) mg/dL Adrenal panel 09/18/20 09/19/20 Range/Units 17:28 05:10 Sodium 134 L 136 L (137-145) mmol/L Potassium 3.5 3.4 L (3.5-5.1) mmol/L Chloride 100 104 (98-107) mmol/L Carbon Dioxide 23 23 (22-30) mmol/L BUN 12 13 (7-17) mg/dL Creatinine 0.74 0.61 (0.52-1.04) mg/dL Glucose 147 H 96 (74-99) mg/dL Calcium 9.3 8.3 L (8.4-10.2) mg/dL Total Bilirubin 2.3 H 1.4 H (0.2-1.3) mg/dL AST 20 18 (14-36) U/L ALT 24 18 (4-34) U/L Alkaline Phosphatase 98 74 (38-126) U/L Total Protein 7.3 6.1 L (6.3-8.2) g/dL Albumin 4.2 3.3 L (3.5-5.0) g/dL
[2020-09-19] MEDS: PANTOPRAZOLE 40 MG/10 ML VIAL IVP SCH (12:16)
[2020-09-19] MEDS: 0.9% NACL WITH KCL 20 MEQ/L 1,000 ML IV SCH ×2 (13:10→22:59)
[2020-09-19] MEDS: HEPARIN SODIUM,PORCINE/PF 5,000 UNIT/0.5 ML SYRINGE SQ SCH (21:13)
[2020-09-19] MEDS ORDERED: ACETAMINOPHEN IV (For NPO) 1,000 MG in EMPTY BAG 1 BAG IVPB PRN (21:20)
[2020-09-19] MEDS: LEVOFLOXACIN 750MG-D5W PMX 750 MG in DEXTROSE/WATER 1 150ML.BAG IVPB SCH (22:59)
[2020-09-20] MEDS: metroNIDAZOLE-NS PMX 500 MG in SALINE 1 100ML.BAG IVPB SCH ×4 (00:11→23:43)
[2020-09-20] MEDS: SODIUM CHLORIDE 0.9% 1,000 ML IV SCH ×2 (01:29→20:00)
[2020-09-20 06:12] LABS: Basophils % (A) 0 %; Eosinophils # (A) 0.5 k/uL (0-0.7); Eosinophils % (A) 5 %; HCT 38.9 % (34.0-46.0); HGB 13.5 gm/dL (11.4-16.0); Lymphocytes % (A) 9 %; MCH 33.5 pg (25.0-35.0); MCHC 34.6 g/dL (31.0-37.0); MCV 96.7 fL (80.0-100.0); Mean Platelet Volume 7.6; Monocytes # (A) 0.5 k/uL (0-1.0); Monocytes % (A) 4 %; Neutrophils % (A) 82 %; Platelet Count 241 k/uL (150-450); RBC 4.02 m/uL (3.80-5.40); RDW 12.2 % (11.5-15.5); WBC 11.1 k/uL (3.8-10.6)
[2020-09-20 06:21] LABS: Potassium 3.7 mmol/L (3.5-5.1)
[2020-09-20 06:22] LABS: ALT 16 U/L (4-34); AST 19 U/L (14-36); African American GFR (CKD) >90 (>60 ml/min/1.73 sqM); Alkaline Phosphatase 67 U/L (38-126); Anion Gap 6 mmol/L; Blood Urea Nitrogen 11 mg/dL (7-17); Calcium 8.3 mg/dL (8.4-10.2); Carbon Dioxide 21 mmol/L (22-30); Chloride 109 mmol/L (98-107); Glucose 89 mg/dL (74-99); Non-African American GFR(CKD) >90 (>60 ml/min/1.73 sqM); Sodium 136 mmol/L (137-145); Total Bilirubin 0.8 mg/dL (0.2-1.3); Total Protein 5.6 g/dL (6.3-8.2)
[2020-09-20] MEDS: PANTOPRAZOLE 40 MG/10 ML VIAL IVP SCH (08:33)
[2020-09-20] MEDS: HEPARIN SODIUM,PORCINE/PF 5,000 UNIT/0.5 ML SYRINGE SQ SCH ×3 (08:33→20:01)
[2020-09-20] MEDS: 0.9% NACL WITH KCL 20 MEQ/L 1,000 ML IV SCH ×2 (08:46→20:01)
[2020-09-20 11:33] VITALS: BMI 27.4
--- NOTE | 2020-09-20 11:43 | P.PN ---
<BrandonmarianoRhianna canela - Last Filed: 09/20/20 11:40> Subjective Progress Note Date: 09/20/20 CHIEF COMPLAINT: Abdominal pain HISTORY OF PRESENT ILLNESS: A service is following regards patient's abdominal pain and enteritis. Patient reports decrease in pain. She states that her pain is better to out of 10 and still in the lower abdomen. She did have one watery stool last night and this morning. No blood present in the stools. White count has gone down from 16.2-11.1 she is afebrile. Stool cultures are negative so far. Potassium improved 3.7 And she is currently nothing by mouth. PHYSICAL EXAM: VITAL SIGNS: Reviewed. GENERAL: Well-developed in no acute distress. HEENT: No sclera icterus. Extraocular movements grossly intact. Moist buccal mucosa. Head is atraumatic, normocephalic. ABDOMEN: Soft. Nondistended. Tenderness with palpation in the lower mid abdomen NEUROLOGIC: Alert and oriented. Cranial nerves II through XII grossly intact. ASSESSMENT: 1. Lower abdominal pain with vomiting and diarrhea possibly due to an enteritis PLAN: -Keep patient nothing by mouth -Continue antibiotics -Continue IV fluids -Continue pain medication as needed -Continue antiemetics -Encourage patient to ambulate -Add GI prophylaxis Protonix and DVT prophylaxis subcu heparin Physician Machine Tester note has been reviewed by physician. Signing provider agrees with the documented findings, assessment, and plan of care. Objective - Vital Signs Vital signs: Vital Signs Temp 98.3 F 09/20/20 08:08 Pulse 84 09/20/20 08:08 Resp 16 09/20/20 08:08 BP 159/96 09/20/20 08:08 Pulse Ox 95 09/20/20 08:08 Intake & Output 09/19/20 09/20/20 09/20/20 18:59 06:59 18:59 Intake Total 500 Balance 500 Weight 77.111 kg Intake: Intake, IV Titration 500 Amount Sodium Chloride 0.9% 1, 500 000 ml @ 100 mls/hr IV . Q10H [facility] Rx#:[id number] Other: Voiding Method Toilet # Voids 1 4 # Bowel Movements 1 - Labs CBC & Chem 7: 09/20/20 05:58 09/20/20 05:58 Labs: Abnormal Lab Results - Last 24 Hours (Table) 09/20/20 09/20/20 Range/Units 05:58 05:58 WBC 11.1 H (3.8-10.6) k/uL Neutrophils # 9.0 H (1.3-7.7) k/uL Sodium 136 L (137-145) mmol/L Chloride 109 H (98-107) mmol/L Carbon Dioxide 21 L (22-30) mmol/L Calcium 8.3 L (8.4-10.2) mg/dL Total Protein 5.6 L (6.3-8.2) g/dL Albumin 3.0 L (3.5-5.0) g/dL Microbiology - Last 24 Hours (Table) 09/19/20 07:07 Stool Culture - Preliminary Stool <Bryon Huerta - Last Filed: 09/20/20 15:37> Subjective As above. Patient feels better today. Diarrhea is improving. Continue antibiotics. Follow cultures. Objective - Vital Signs Vital signs: Vital Signs Temp 98.9 F 09/20/20 14:27 Pulse 75 09/20/20 14:27 Resp 16 09/20/20 14:27 BP 164/65 09/20/20 14:27 Pulse Ox 96 09/20/20 14:27 Intake & Output 09/19/20 09/20/20 09/20/20 18:59 06:59 18:59 Intake Total 500 Balance 500 Weight 77.111 kg Intake: Intake, IV Titration 500 Amount Sodium Chloride 0.9% 1, 500 000 ml @ 100 mls/hr IV . Q10H [facility] Rx#:[id number] Other: Voiding Method Toilet # Voids 1 4 # Bowel Movements 1 - Labs CBC & Chem 7: 09/20/20 05:58 18 05:58 Labs: Abnormal Lab Results - Last 24 Hours (Table) 09/20/2018 Range/Units 05:58 05:58 WBC 11.1 H (3.8-10.6) k/uL Neutrophils # 9.0 H (1.3-7.7) k/uL Sodium 136 L (137-145) mmol/L Chloride 109 H (98-107) mmol/L Carbon Dioxide 21 L (22-30) mmol/L Calcium 8.3 L (8.4-10.2) mg/dL Total Protein 5.6 L (6.3-8.2) g/dL Albumin 3.0 L (3.5-5.0) g/dL Microbiology - Last 24 Hours (Table) 09/19/20 07:07 Stool Culture - Preliminary Stool
[2020-09-20 13:16] LABS: C-ANCA <1:20 Titer (<1:20)
--- NOTE | 2020-09-20 14:04 | P.PN ---
<Jun Cassidy - Last Filed: 09/20/20 13:37> Subjective Progress Note Date: 09/20/20 Hospital course: Patient is a 55-year-old female with no known reported past medical history who presented to the hospital on 09/18/20 with a chief complaint of abdominal pain accompanied by nausea, vomiting, and diarrhea. She was admitted under our services secondary to concerns of enteritis and a consultation was placed to to general surgery. Patient made nothing by mouth, given antibiotics for nausea, fluids for hydration, and started on IV antibiotics Flagyl and Levaquin. CT abdomen and pelvis consistent with IBS. Covid 19 PCR negative. Physical exam: Patient was seen and fully evaluated at the bedside this morning. She reports continued episodes of diarrhea along with persistent abdominal pain. She denies having any further episodes of nausea or vomiting. She denies having an appetite at this time. Patient remains NPO and is receiving fluid hydration with 0.9% normal saline at 100 mL's per hour. Patient denies having any hea dache, lightheadedness, dizziness, chest pain, palpitations, or shortness of breath. General: non toxic, no distress, appears at stated age Derm: warm, dry Head: atraumatic, normocephalic, symmetric Eyes: EOMI, no lid lag, anicteric sclera Mouth: no lip lesion, mucus membranes moist Cardiovascular: S1S2 reg, no murmur, positive posterior tibial pulse bilateral, Lungs: CTA bilateral, no rhonchi, no rales , no accessory muscle use Abdominal: soft, tenderness to palpation in bilateral lower quadrants, no guarding, no appreciable organomegaly Ext: no gross muscle atrophy, no edema, no contractures Neuro: CN II-XI grossly intact, no focal neuro deficits Psych: Alert, oriented, appropriate affect Plan of care: Diffuse ileitis -CT abdomen and pelvis consistent with IBS. -Maintain NPO status -Continue IV fluids for hydration -Symptomatic care, Zofran for nausea, morphine for pain. Will add on Bentyl as patient complaining of significant cramping. -Continue IV antibiotics: Levaquin and Flagyl -Stool cultures and C. diff pending Leukocytosis, improving Elevated bilirubin, resolved CODE STATUS: Full code DVT prophylaxis: Heparin Discussed with: Patient and RN Anticipated discharge date: Clinical course to determine Anticipated discharge place: Home A total of 45 minutes was spent on the care of this complex patient more than 50% of the time was spent in counseling and care coordination. Objective - Vital Signs Vital signs: Vital Signs Temp 98.3 F 09/20/20 08:08 Pulse 84 09/20/20 08:08 Resp 16 09/20/20 08:08 BP 159/96 09/20/20 08:08 Pulse Ox 95 09/20/20 08:08 Intake & Output 09/19/20 09/20/20 09/20/20 18:59 06:59 18:59 Intake Total 500 Balance 500 Weight 77.111 kg Intake: Intake, IV Titration 500 Amount Sodium Chloride 0.9% 1, 500 000 ml @ 100 mls/hr IV . Q10H [facility] Rx#:[id number] Other: Voiding Method Toilet # Voids 1 4 # Bowel Movements 1 - Labs CBC & Chem 7: 09/20/20 05:58 09/20/20 05:58 Labs: Abnormal Lab Results - Last 24 Hours (Table) 09/20/20 09/20/20 Range/Units 05:58 05:58 WBC 11.1 H (3.8-10.6) k/uL Neutrophils # 9.0 H (1.3-7.7) k/uL Sodium 136 L (137-145) mmol/L Chloride 109 H (98-107) mmol/L Carbon Dioxide 21 L (22-30) mmol/L Calcium 8.3 L (8.4-10.2) mg/dL Total Protein 5.6 L (6.3-8.2) g/dL Albumin 3.0 L (3.5-5.0) g/dL Microbiology - Last 24 Hours (Table) 09/19/20 07:07 Stool Culture - Preliminary Stool <Radha Chakraborty - Last Filed: 09/20/20 15:50> Objective - Vital Signs Vital signs: Vital Signs Temp 98.9 F 09/20/20 14:27 Pulse 75 09/20/20 14:27 Resp 16 09/20/20 14:27 BP 164/65 09/20/20 14:27 Pulse Ox 96 09/20/20 14:27 Intake & Output 09/19/20 09/20/20 09/20/20 18:59 06:59 18:59 Intake Total 500 Balance 500 Weight 77.111 kg Intake: Intake, IV Titration 500 Amount Sodium Chloride 0.9% 1, 500 000 ml @ 100 mls/hr IV . Q10H [facility] Rx#:[id number] Other: Voiding Method Toilet # Voids 1 4 # Bowel Movements 1 - Labs CBC & Chem 7: 09/20/20 05:58 09/20/20 05:58 Labs: Abnormal Lab Results - Last 24 Hours (Table) 09/20/20 09/20/20 Range/Units 05:58 05:58 WBC 11.1 H (3.8-10.6) k/uL Neutrophils # 9.0 H (1.3-7.7) k/uL Sodium 136 L (137-145) mmol/L Chloride 109 H (98-107) mmol/L Carbon Dioxide 21 L (22-30) mmol/L Calcium 8.3 L (8.4-10.2) mg/dL Total Protein 5.6 L (6.3-8.2) g/dL Albumin 3.0 L (3.5-5.0) g/dL Microbiology - Last 24 Hours (Table) 09/19/20 07:07 Stool Culture - Preliminary Stool Assessment and Plan Assessment: I discussed the care with Jun Cassidy NP and reviewed the findings and plan as documented in the note above. I did not physically speak with or examine the p atient on this date. Correction: Ct consistent with Inflammatory Bowel disease
[2020-09-20] MEDS: DICYCLOMINE 10 MG CAP PO SCH ×2 (17:46→22:00)
[2020-09-20] MEDS: LEVOFLOXACIN 750MG-D5W PMX 750 MG in DEXTROSE/WATER 1 150ML.BAG IVPB SCH (22:00)
[2020-09-21] MEDS: 0.9% NACL WITH KCL 20 MEQ/L 1,000 ML IV SCH (05:45)
[2020-09-21 06:41] LABS: HCT 40.2 % (34.0-46.0); HGB 14.1 gm/dL (11.4-16.0); MCH 33.5 pg (25.0-35.0); MCV 95.9 fL (80.0-100.0); Mean Platelet Volume 7.1; Platelet Count 283 k/uL (150-450); RBC 4.19 m/uL (3.80-5.40); WBC 13.3 k/uL (3.8-10.6)
[2020-09-21 07:01] LABS: African American GFR (CKD) >90 (>60 ml/min/1.73 sqM); Anion Gap 10 mmol/L; Blood Urea Nitrogen 8 mg/dL (7-17); Calcium 8.6 mg/dL (8.4-10.2); Carbon Dioxide 21 mmol/L (22-30); Chloride 105 mmol/L (98-107); Glucose 89 mg/dL (74-99); Magnesium 1.6 mg/dL (1.6-2.3); Non-African American GFR(CKD) >90 (>60 ml/min/1.73 sqM); Potassium 4.1 mmol/L (3.5-5.1); Sodium 136 mmol/L (137-145)
[2020-09-21] MEDS: HEPARIN SODIUM,PORCINE/PF 5,000 UNIT/0.5 ML SYRINGE SQ SCH ×2 (08:31→08:37)
[2020-09-21] MEDS: PANTOPRAZOLE 40 MG/10 ML VIAL IVP SCH (08:31)
[2020-09-21] MEDS: metroNIDAZOLE-NS PMX 500 MG in SALINE 1 100ML.BAG IVPB SCH (08:32)
[2020-09-21] MEDS: DICYCLOMINE 10 MG CAP PO SCH ×2 (08:32→12:57)
[2020-09-21 08:54] VITALS: RESP 16
--- NOTE | 2020-09-21 12:02 | P.PN ---
<BrandonmarianoRhianna canela - Last Filed: 09/21/20 11:58> Subjective Progress Note Date: 09/21/20 CHIEF COMPLAINT: Abdominal pain HISTORY OF PRESENT ILLNESS: Surgical service is following regarding patient's abdominal pain and enteritis. Patient reports improvement in her abdominal pain. She denies any nausea or vomiting. She reports that her bowel movements are becoming more formed and less frequent. She did have a stool this morning. She is afebrile. White count is up at 13.3. Stool studies are negative so far PHYSICAL EXAM: VITAL SIGNS: Reviewed. GENERAL: Well-developed in no acute distress. HEENT: No sclera icterus. Extraocular movements grossly intact. Moist buccal mucosa. Head is atraumatic, normocephalic. ABDOMEN: Soft. Nondistended. Tenderness with palpation in the lower mid abdomen NEUROLOGIC: Alert and oriented. Cranial nerves II through XII grossly intact. ASSESSMENT: 1. Lower abdominal pain with vomiting and diarrhea possibly due to an enteritis PLAN: -Patient starting clear liquid diet -Continue antibiotics -Continue IV fluids -Continue pain medication as needed -Continue antiemetics -Encourage patient to ambulate -GI prophylaxis Protonix and DVT prophylaxis subcu heparin Physician Global Marketing Specialist note has been reviewed by physician. Signing provider agrees with the documented findings, assessment, and plan of care. Objective - Vital Signs Vital signs: Vital Signs Temp 98.3 F 09/21/20 08:07 Pulse 92 09/21/20 08:07 Resp 16 09/21/20 08:07 BP 163/92 09/21/20 08:07 Pulse Ox 95 09/21/20 08:07 Intake & Output 09/20/20 09/21/20 09/21/20 18:59 06:59 18:59 Intake Total 500 700 Balance 500 700 Weight 77.111 kg Intake: Intake, IV Titration 700 Amount 0.9% NaCl with KCl 20 Meq 700 /l 1,000 ml @ 100 mls/hr IV .Q10H [facility] Rx#: [id number] Oral 500 Other: Voiding Method Toilet # Voids 3 4 # Bowel Movements 3 - Labs CBC & Chem 7: 09/21/20 06:16 09/21/20 06:16 Labs: Abnormal Lab Results - Last 24 Hours (Table) 09/21/20 09/21/20 Range/Units 06:16 06:16 WBC 13.3 H (3.8-10.6) k/uL Sodium 136 L (137-145) mmol/L Carbon Dioxide 21 L (22-30) mmol/L <Bryon Huerta - Last Filed: 09/21/20 12:45> Subjective As above. Patient's pain is improved. Loose stools are decreasing in frequency. Continue increasing diet. Continue antibiotics. Possible discharge Objective - Vital Signs Vital signs: Vital Signs Temp 98.3 F 09/21/20 08:07 Pulse 92 09/21/20 08:07 Resp 16 09/21/20 08:07 BP 163/92 09/21/20 08:07 Pulse Ox 95 09/21/20 08:07 Intake & Output 09/20/20 09/21/20 09/21/20 18:59 06:59 18:59 Intake Total 500 700 Balance 500 700 Weight 77.111 kg Intake: Intake, IV Titration 700 Amount 0.9% NaCl with KCl 20 Meq 700 /l 1,000 ml @ 100 mls/hr IV .Q10H [facility] Rx#: [id number] Oral 500 Other: Voiding Method Toilet # Voids 3 4 # Bowel Movements 3 - Labs CBC & Chem 7: 09/21/20 06:16 09/21/20 06:16 Labs: Abnormal Lab Results - Last 24 Hours (Table) 09/21/20 09/21/20 Range/Units 06:16 06:16 WBC 13.3 H (3.8-10.6) k/uL Sodium 136 L (137-145) mmol/L Carbon Dioxide 21 L (22-30) mmol/L
--- NOTE | 2020-09-21 14:00 | P.DS ---
<Jun Cassidy - Last Filed: 09/21/20 15:26> Providers Expected date of discharge: 09/21/20 Hospital Course: Discharge Diagnosis: Plan of care: Diffuse ileitis Leukocytosis, improving Elevated bilirubin, resolved Hospital Course: Patient is a 55-year-old female with no known reported past medical history who presented to the hospital on 09/18/20 with a chief complaint of abdominal pain accompanied by nausea, vomiting, and diarrhea. She was admitted under our services secondary to concerns of enteritis and a consultation was placed to to general surgery. Patient made nothing by mouth, given antibiotics for nausea, fluids for hydration, and started on IV antibiotics Flagyl and Levaquin. CT abdomen and pelvis consistent with IBD. Covid 19 PCR negative. Patient was treated with IV fluids, IV antibiotics, and was initially nothing by mouth. Diet has been advanced and patient is tolerating well. Patient being discharged home at this time and to follow up outpatient with her primary care provider in 1-[address] Huerta, general surgery in 1 week. Patient being discharged home on oral antibiotics ciprofloxacin and Flagyl and to take as directed 7 days. Patient instructed on importance of completing entire course of antibiotics without missing any doses. Physical exam: Patient was seen and fully evaluated at the bedside this morning. She reports no further episodes of diarrhea and resolution of abdominal tenderness. Her appetite has improved and she has been tolerating a full liquid diet without any difficulties. Diet was advanced and patient tolerated. Patient's condition stable at this time. She denies having any headache, lightheadedness, dizziness, chest pain, palpitations, or shortness of breath. Vital signs reviewed and stable. General: Nontoxic, no distress and appears stated age. Derm: Skin warm and dry, normal coloration for ethnicity. Head: Atraumatic, normocephalic and symmetric. Eyes: EOMs intact, no lid lag, and anicteric sclera Mouth: no lip lesions, mucus membranes moist Cardiovascular: regular rate and rhythm with normal S1S2, no murmur, positive posterior tibial pulses bilaterally, and cap refill < 2 seconds. Lungs: Respirations even, regular, and unlabored on room air. Lungs CTA bilaterally, no rhonchi, no rales, no wheezing, and no accessory muscle usage. Abdominal: soft, nontender to palpation, no guarding, no appreciable organomegaly Ext: ROM intact. No gross muscle atrophy, no edema, no contractures Neuro: Speech clear, face symmetrical and CN II-XII grossly intact with no noted focal neuro deficits Psych: Alert and oriented to person, place, time, and situation. Appropriate and pleasant affect. A total of 45 minutes of time were spent preparing this complex discharge summary. Patient Condition at Discharge: Stable Plan - Discharge Summary New Discharge Prescriptions: New Ciprofloxacin/Ciprofloxa HCl [Ciprofloxacin ER] 500 mg PO Q24HR 7 Days #7 tab metroNIDAZOLE [Flagyl] 500 mg PO Q8HR 7 Days #21 tab Continue Ibuprofen [Motrin Ib] 400 mg PO Q8H PRN PRN Reason: Pain Discharge Medication List Ibuprofen [Motrin Ib] 400 mg PO Q8H PRN 09/18/20 [History] Ciprofloxacin/Ciprofloxa HCl [Ciprofloxacin ER] 500 mg PO Q24HR 7 Days #7 tab 09/21/20 [Rx] metroNIDAZOLE [Flagyl] 500 mg PO Q8HR 7 Days #21 tab 09/21/20 [Rx] Follow up Appointment(s)/Referral(s): Bryon Huerta MD [Medical Doctor] - 1 Week None,Stated [Primary Care Provider] - 1-2 days Patient Instructions/Handouts: Gastritis (DC), Leukocytosis (DC), Enteritis (ED) Activity/Diet/Wound Care/Special Instructions: Activity: As tolerated Diet: Begin with BRAT diet which consists of bland foods including bananas, rice, applesauce, and toast. Advanced to Heart healthy diet as tolerated. Drink plenty of liquids. Special Instructions: Please complete entire course of antibiotics as prescribed. It is important not to miss any doses. Thank you for allowing us to participate in your care, it was a pleasure having you for our patient! Discharge Disposition: HOME SELF-CARE <Radha Chakraborty [place] - Last Filed: 09/21/20 22:13> Providers Date of admission: 09/18/20 19:56 Attending physician: Adalberto Mccain MD Consults: 09/18/20 19:59 Consult Physician Stat Consulting Provider: Bryon Huerta Consult Reason/Comments: abdominal pain, abnormal CT Do you want consulting provider notified?: Already Contacted Primary care physician: Stated None Hospital Course: I discussed the care with Jun Cassidy NP and reviewed the findings and plan as d ocumented in the note above. I did not physically speak with or examine the patient on this date.
[2020-09-21 14:19] VITALS: BP 171/84; PULSE 93; TEMP 99.2
== END 2020-09-21 15:57 | disposition home or self-care (01) | DRG 872 ==
LOC: EC 16:32 → 6PED 19:56
PROVIDERS: ADMIT Internal Medicine; ATTEND Internal Medicine
DX: A41.9 Sepsis, unspecified organism (principal); E87.2 Acidosis; R17 Unspecified jaundice; K57.30 Diverticulosis of large intestine without perforation or abscess without bleeding; K52.89 Other specified noninfective gastroenteritis and colitis; Z20.822 Contact with and (suspected) exposure to COVID-19; Z82.5 Family history of asthma and other chronic lower respiratory diseases; Z87.891 Personal history of nicotine dependence; Z88.0 Allergy status to penicillin
CPT/HCPCS: 36415; 74177; 80048; 80053; 81001; 83605; 83690; 83735; 85025; 85027; 86255; 87045; 87046; 87324; 87328; 87329; 87635; 96361; 96374; 99285